=== PATIENT | male | born 1990 | race Two or more races ===

== ENCOUNTER 2021-02-14 12:00 | Emergency (ER) | payer MEDICAID, MEDICARE ==
[~2021-02-14] VITALS: Ht 170.2 cm; Wt 54.4 kg
[2021-02-14 19:20] VITALS: BP 114/74
== END 2021-02-14 19:25 | disposition home or self-care (01) ==
LOC: ER 12:00
DX: F20.9 Schizophrenia, unspecified (principal); F17.210 Nicotine dependence, cigarettes, uncomplicated; Z76.0 Encounter for issue of repeat prescription